=== PATIENT | male | born 1940 | race Caucasian/White ===

== ENCOUNTER → 2021-12-16 | Outpatient (CLI) | payer MEDICARE ==
[~2021-12-16] MED LIST: IOPAMIDOL 370 MG/ML 100 ML INFUS..BTL INJ ONE
[2021-12-16 12:28] LABS: CREATININE, SERUM 0.84 mg/dL (0.72-1.25)
== END ==
LOC: CT 11:16
PROVIDERS: ATTEND Urology
DX: R31.21 Asymptomatic microscopic hematuria (principal); N28.1 Cyst of kidney, acquired
CPT/HCPCS: 36415; 74178; 82565; 84520; Q9967

== ENCOUNTER → 2022-01-23 | Outpatient (CLI) | payer MEDICARE ==
[~2022-01-23] MED LIST changes: +FENTANYL CITRATE/PF 100MCG/2 ML INJ ONE; +HYDRALAZINE HCL 20 MG/ML VIAL ONE; -IOPAMIDOL 370 MG/ML 100 ML INFUS..BTL INJ ONE; +MIDAZOLAM HCL 2 MG/2 ML VIAL ONE; +SODIUM CHLORIDE 0.9% 250ML 250 ML ONE
[2022-01-23 08:32] LABS: BASOPHILS # (AUTO) 0.1 (0.0-0.1); BASOPHILS % 0.9 % (0.0-1.0); EOSINOPHILS # (AUTO) 0.1 (0.0-0.4); EOSINOPHILS % 2.2 % (0.0-6.0); HEMATOCRIT 38.2 % (38.2-49.6); LYMPHOCYTES # (AUTO) 1.3 (1.0-3.2); LYMPHOCYTES % 23.2 % (18.0-39.1); MEAN CORPUSCULAR HEMOGLOBIN 28.4 pg (28-32); MEAN CORPUSCULAR HGB CONC 31.4 g/dL (31-35); MEAN CORPUSCULAR VOLUME 90.3 fL (81-99); MONOCYTES # (AUTO) 0.6 (0.2-0.8); MONOCYTES % 10.7 % (4.4-11.3); NEUTROPHILS # (AUTO) 3.4 (2.1-6.9); NEUTROPHILS % 62.8 % (38.7-80.0); PLATELET COUNT 223 x10e3/uL (140-360); RED BLOOD COUNT 4.23 x10e6/uL (4.3-5.7); RED CELL DISTRIBUTION WIDTH 14.6 % (11.7-14.4)
[2022-01-23 08:50] LABS: INR 0.92; PROTHROMBIN TIME 13.2 seconds (11.9-14.5)
[2022-01-23 08:51] LABS: PARTIAL THROMBOPLASTIN TIME 29.7 seconds (23.8-35.5)
[2022-01-23 08:57] LABS: ANION GAP 12.8 mmol/L (8-16); CALCIUM 9.5 mg/dL (8.4-10.2); CREATININE, SERUM 0.89 mg/dL (0.72-1.25); POTASSIUM 3.8 mmol/L (3.5-5.1)
== END ==
LOC: US 08:03
PROVIDERS: ATTEND Urology
DX: N28.89 Other specified disorders of kidney and ureter (principal); Z20.822 Contact with and (suspected) exposure to COVID-19
CPT/HCPCS: 0223U; 36415 ×2; 50200; 76942; 80048; 85025; 85610; 85730; 88305; 88333; 88342; J0360; J2250; J3010; J7050; 88304

== ENCOUNTER 2022-03-30 10:42 | Inpatient (IN) | payer MEDICARE ==
[2022-03-27 12:26] LABS: BASOPHILS % 0.7 % (0.0-1.0); EOSINOPHILS # (AUTO) 0.1 (0.0-0.4); EOSINOPHILS % 1.4 % (0.0-6.0); HEMATOCRIT 38.8 % (38.2-49.6); LYMPHOCYTES # (AUTO) 0.7 (1.0-3.2); MEAN CORPUSCULAR HEMOGLOBIN 29.1 pg (28-32); MEAN CORPUSCULAR HGB CONC 30.9 g/dL (31-35); MEAN CORPUSCULAR VOLUME 94.2 fL (81-99); MONOCYTES # (AUTO) 0.5 (0.2-0.8); MONOCYTES % 12.1 % (4.4-11.3); NEUTROPHILS # (AUTO) 2.9 (2.1-6.9); NEUTROPHILS % 69.6 % (38.7-80.0); PLATELET COUNT 165 x10e3/uL (140-360); RED BLOOD COUNT 4.12 x10e6/uL (4.3-5.7); RED CELL DISTRIBUTION WIDTH 15.4 % (11.7-14.4)
[2022-03-27 12:46] LABS: ALBUMIN 3.7 g/dL (3.5-5.0); ALBUMIN/GLOBULIN RATIO 1.2 (0.8-2.0); ANION GAP 10.2 mmol/L (8-16); CALCIUM 9.1 mg/dL (8.4-10.2); CREATININE, SERUM 0.92 mg/dL (0.72-1.25); POTASSIUM 4.2 mmol/L (3.5-5.1)
[~2022-03-30] VITALS: Ht 177.8 cm; Wt 63.5 kg
[~2022-03-30 10:42] MED LIST changes: +ADVIL200 M1 PO; +AVODART0.5 MG PO; +B12 PO; +CO Q-10200 MG PO; -FENTANYL CITRATE/PF 100MCG/2 ML INJ ONE; +FLOMAX0.4 MG PO; -HYDRALAZINE HCL 20 MG/ML VIAL ONE; +L-THEANINE200 MG PO; +MAGNESIUM PO; -MIDAZOLAM HCL 2 MG/2 ML VIAL ONE; +MULTI-VITAMIN1 EACH PO; +RESTASIS1 EACH; -SODIUM CHLORIDE 0.9% 250ML 250 ML ONE; +TUMERIC PO; +TYLENOL PM; +VISION VITAMIN1 EACH PO; +VITAMIN D3250 MC1 PO
[2022-03-30] MEDS ORDERED: LIDOCAINE HCL 2% LOCAL INJ 5 ML SDV VIAL INJ ONE (12:25)
[2022-03-30] MEDS ORDERED: ROCURONIUM BROMIDE 10 MG/ML 5ML VIAL IV ONE (12:25)
[2022-03-30] MEDS ORDERED: PROPOFOL IV EMULSION 10 MG/ML 20 ML VIAL ONE (12:25)
[2022-03-30] MEDS ORDERED: POVIDONE IODINE 0.05% 0.05 % ML PO ONE (12:25)
[2022-03-30] MEDS ORDERED: SEVOFLURANE INHAL SOLN 250 ML PEN BTL ONE (12:25)
[2022-03-30] MEDS ORDERED: HYDROMORPHONE 2MG/ML 2 MG/ML ML ONE (12:28)
[2022-03-30] MEDS ORDERED: NEOSTIGMINE 1 MG/ML 10ML VIAL ONE (13:06)
[2022-03-30] MEDS ORDERED: ONDANSETRON HCL INJ 2MG/ML 2ML 2 MG/ML VIAL ONE (13:06)
[2022-03-30] MEDS ORDERED: GLYCOPYRROLATE INJ 0.2 MG/ML VIAL ONE (13:06)
[2022-03-30] MEDS ORDERED: FENTANYL CITRATE/PF 100MCG/2 ML INJ ONE ×2 (13:17→16:29)
[2022-03-30] MEDS ORDERED: MANNITOL 25% 12.5GM/50ML 50 ML ONE (13:42)
[2022-03-30] MEDS: SODIUM CHLORIDE 0.9% 250ML IRRIG IR SCH ×3 (15:30→23:30)
[2022-03-30] MEDS ORDERED: DIPHENHYDRAMINE HCL INJ 50 MG/ML VIAL IM PRN (15:30)
[2022-03-30] MEDS ORDERED: NALOXONE HCL INJ 0.4 MG/ML AMP IV PRN (15:30)
[2022-03-30] MEDS: MORPHINE SULFATE 1 MG/ML 30ML PCA IV PRN ×3 (15:50→22:08)
[2022-03-30 16:08] LABS: BASOPHILS % 0.5 % (0.0-1.0); EOSINOPHILS % 0.1 % (0.0-6.0); HEMATOCRIT 37.9 % (38.2-49.6); HEMOGLOBIN 11.7 g/dL (14.0-18.0); LYMPHOCYTES # (AUTO) 1.1 (1.0-3.2); LYMPHOCYTES % 13.7 % (18.0-39.1); MEAN CORPUSCULAR HEMOGLOBIN 29.3 pg (28-32); MEAN CORPUSCULAR HGB CONC 30.9 g/dL (31-35); MEAN CORPUSCULAR VOLUME 94.8 fL (81-99); MONOCYTES # (AUTO) 0.5 (0.2-0.8); NEUTROPHILS # (AUTO) 6.3 (2.1-6.9); NEUTROPHILS % 79.4 % (38.7-80.0); PLATELET COUNT 173 x10e3/uL (140-360); RED CELL DISTRIBUTION WIDTH 15.3 % (11.7-14.4)
[2022-03-30] MEDS ORDERED: HYDROMORPHONE 1MG/1ML INJ ONE (16:23)
[2022-03-30 16:26] LABS: ANION GAP 14.5 mmol/L (8-16); CALCIUM 8.6 mg/dL (8.4-10.2); CREATININE, SERUM 0.78 mg/dL (0.72-1.25); POTASSIUM 3.5 mmol/L (3.5-5.1)
[2022-03-30] MEDS: D5.45%NS/KCL 20MEQ 1,000 ML IV SCH (16:30)
[2022-03-30] MEDS: ACETAMINOPHEN 1000 MG/100 ML IV PRN (18:30)
[2022-03-30 20:00] VITALS: BP 169/103
[2022-03-30 21:00] VITALS: BP 147/70
[2022-03-30 22:00] VITALS: BP 176/88
[2022-03-30 23:00] VITALS: BP 153/71
[2022-03-31] VITALS (11 sets, daily range): BP systolic 130–172; BP diastolic 65–89
[2022-03-31] MEDS: D5.45%NS/KCL 20MEQ 1,000 ML IV SCH ×3 (00:30→23:00)
[2022-03-31] MEDS: SODIUM CHLORIDE 0.9% 250ML IRRIG IR SCH ×3 (03:30→13:25)
[2022-03-31 05:04] LABS: BASOPHILS % 0.1 % (0.0-1.0); HEMATOCRIT 38.4 % (38.2-49.6); HEMOGLOBIN 11.4 g/dL (14.0-18.0); LYMPHOCYTES # (AUTO) 0.4 (1.0-3.2); LYMPHOCYTES % 3.4 % (18.0-39.1); MEAN CORPUSCULAR HEMOGLOBIN 28.8 pg (28-32); MEAN CORPUSCULAR HGB CONC 29.7 g/dL (31-35); MONOCYTES # (AUTO) 0.8 (0.2-0.8); MONOCYTES % 8.1 % (4.4-11.3); NEUTROPHILS # (AUTO) 9.1 (2.1-6.9); NEUTROPHILS % 88.1 % (38.7-80.0); PLATELET COUNT 169 x10e3/uL (140-360); RED BLOOD COUNT 3.96 x10e6/uL (4.3-5.7); RED CELL DISTRIBUTION WIDTH 15.3 % (11.7-14.4)
[2022-03-31 05:22] LABS: ANION GAP 14.8 mmol/L (8-16); CALCIUM 8.5 mg/dL (8.4-10.2); CREATININE, SERUM 0.91 mg/dL (0.72-1.25); POTASSIUM 3.8 mmol/L (3.5-5.1)
[2022-03-31] MEDS: MORPHINE SULFATE 1 MG/ML 30ML PCA IV PRN (06:13)
[2022-03-31] MEDS: ONDANSETRON HCL INJ 2MG/ML 2ML 2 MG/ML VIAL IV PRN (09:48)
[2022-03-31] MEDS: ACETAMINOPHEN 1000 MG/100 ML IV PRN ×2 (10:38→23:02)
[2022-03-31] MEDS ORDERED: DILTIAZEM HCL 5 MG/ML 5 ML VIAL IV ONE (21:45)
[2022-03-31] MEDS ORDERED: Morphine 2mg Syringe 2 MG/ML SYR IV PRN (23:00)
[2022-04-01] VITALS (8 sets, daily range): BP systolic 153–189; BP diastolic 86–104
[2022-04-01] MEDS: D5.45%NS/KCL 20MEQ 1,000 ML IV SCH ×3 (00:30→17:51)
[2022-04-01] MEDS ORDERED: DOCUSATE SODIUM 100 MG CAP PO SCH (09:00)
[2022-04-01] MEDS: ACETAMINOPHEN 1000 MG/100 ML IV PRN ×2 (11:54→17:30)
[2022-04-01 15:35] LABS: BASOPHILS % 0.1 % (0.0-1.0); HEMATOCRIT 31.4 % (38.2-49.6); LYMPHOCYTES # (AUTO) 0.3 (1.0-3.2); LYMPHOCYTES % 3.3 % (18.0-39.1); MEAN CORPUSCULAR HGB CONC 31.8 g/dL (31-35); MONOCYTES % 9.3 % (4.4-11.3); NEUTROPHILS # (AUTO) 9.1 (2.1-6.9); NEUTROPHILS % 87.1 % (38.7-80.0); PLATELET COUNT 150 x10e3/uL (140-360); RED BLOOD COUNT 3.45 x10e6/uL (4.3-5.7); RED CELL DISTRIBUTION WIDTH 15.2 % (11.7-14.4)
[2022-04-01 16:01] LABS: ANION GAP 11.1 mmol/L (8-16); CREATININE, SERUM 0.84 mg/dL (0.72-1.25); POTASSIUM 4.1 mmol/L (3.5-5.1)
[2022-04-01] MEDS: DOCUSATE SODIUM 100 MG CAP PO SCH (20:53)
[2022-04-01] MEDS: TRAMADOL HCL 50 MG TAB PO PRN (21:02)
[2022-04-02] VITALS (8 sets, daily range): BP systolic 148–168; BP diastolic 84–99
[2022-04-02] MEDS: D5.45%NS/KCL 20MEQ 1,000 ML IV SCH ×3 (00:12→18:34)
[2022-04-02] MEDS: HYDRALAZINE HCL 20 MG/ML VIAL IV PRN ×3 (00:13→16:09)
[2022-04-02 04:59] LABS: BASOPHILS % 0.3 % (0.0-1.0); EOSINOPHILS % 0.1 % (0.0-6.0); HEMATOCRIT 27.6 % (38.2-49.6); HEMOGLOBIN 9.2 g/dL (14.0-18.0); LYMPHOCYTES # (AUTO) 0.6 (1.0-3.2); LYMPHOCYTES % 6.5 % (18.0-39.1); MEAN CORPUSCULAR HEMOGLOBIN 28.9 pg (28-32); MEAN CORPUSCULAR HGB CONC 33.3 g/dL (31-35); MEAN CORPUSCULAR VOLUME 86.8 fL (81-99); MONOCYTES % 11.2 % (4.4-11.3); NEUTROPHILS # (AUTO) 7.1 (2.1-6.9); NEUTROPHILS % 81.4 % (38.7-80.0); PLATELET COUNT 146 x10e3/uL (140-360); RED BLOOD COUNT 3.18 x10e6/uL (4.3-5.7); RED CELL DISTRIBUTION WIDTH 15.2 % (11.7-14.4)
[2022-04-02 05:07] LABS: ANION GAP 11.4 mmol/L (8-16); CALCIUM 8.7 mg/dL (8.4-10.2); CREATININE, SERUM 0.75 mg/dL (0.72-1.25); POTASSIUM 3.4 mmol/L (3.5-5.1)
[2022-04-02] MEDS: DOCUSATE SODIUM 100 MG CAP PO SCH ×2 (09:54→16:09)
[2022-04-02] MEDS: TRAMADOL HCL 50 MG TAB PO PRN ×2 (09:54→16:10)
[2022-04-02] MEDS ORDERED: KCL 20 MEQ PACKET/ ORAL SOLN PO ONE (14:55)
[2022-04-03] VITALS (8 sets, daily range): BP systolic 147–174; BP diastolic 81–89
[2022-04-03] MEDS: D5.45%NS/KCL 20MEQ 1,000 ML IV SCH ×4 (02:39→19:28)
[2022-04-03 05:43] LABS: BASOPHILS % 0.3 % (0.0-1.0); EOSINOPHILS % 0.6 % (0.0-6.0); HEMATOCRIT 28.7 % (38.2-49.6); HEMOGLOBIN 9.1 g/dL (14.0-18.0); LYMPHOCYTES # (AUTO) 0.6 (1.0-3.2); LYMPHOCYTES % 8.6 % (18.0-39.1); MEAN CORPUSCULAR HEMOGLOBIN 28.9 pg (28-32); MEAN CORPUSCULAR HGB CONC 31.7 g/dL (31-35); MEAN CORPUSCULAR VOLUME 91.1 fL (81-99); MONOCYTES # (AUTO) 0.8 (0.2-0.8); MONOCYTES % 11.7 % (4.4-11.3); NEUTROPHILS # (AUTO) 5.3 (2.1-6.9); NEUTROPHILS % 78.4 % (38.7-80.0); PLATELET COUNT 164 x10e3/uL (140-360); RED BLOOD COUNT 3.15 x10e6/uL (4.3-5.7); RED CELL DISTRIBUTION WIDTH 15.2 % (11.7-14.4)
[2022-04-03 05:58] LABS: ANION GAP 10.5 mmol/L (8-16); CALCIUM 8.6 mg/dL (8.4-10.2); CREATININE, SERUM 0.71 mg/dL (0.72-1.25); POTASSIUM 3.5 mmol/L (3.5-5.1)
[2022-04-03] MEDS: TRAMADOL HCL 50 MG TAB PO PRN ×2 (06:03→12:31)
[2022-04-03] MEDS: DOCUSATE SODIUM 100 MG CAP PO SCH ×2 (10:33→20:33)
[2022-04-03] MEDS: HYDRALAZINE HCL 20 MG/ML VIAL IV PRN (12:31)
[2022-04-03] MEDS ORDERED: ACETAMINOPHEN 325 MG TAB PO PRN (14:45)
[2022-04-03] MEDS ORDERED: SIMETHICONE 80 MG CHEW PO PRN (15:00)
[2022-04-04] VITALS (8 sets, daily range): BP systolic 136–177; BP diastolic 75–95
[2022-04-04] MEDS: D5.45%NS/KCL 20MEQ 1,000 ML IV SCH (05:41)
[2022-04-04] MEDS: HYDRALAZINE HCL 20 MG/ML VIAL IV PRN (06:20)
[2022-04-04 07:32] LABS: BASOPHILS % 0.3 % (0.0-1.0); EOSINOPHILS # (AUTO) 0.1 (0.0-0.4); EOSINOPHILS % 2.3 % (0.0-6.0); HEMATOCRIT 27.5 % (38.2-49.6); HEMOGLOBIN 8.8 g/dL (14.0-18.0); LYMPHOCYTES # (AUTO) 0.5 (1.0-3.2); LYMPHOCYTES % 9.4 % (18.0-39.1); MEAN CORPUSCULAR HEMOGLOBIN 29.1 pg (28-32); MEAN CORPUSCULAR VOLUME 91.1 fL (81-99); MONOCYTES # (AUTO) 0.8 (0.2-0.8); NEUTROPHILS # (AUTO) 4.3 (2.1-6.9); NEUTROPHILS % 74.7 % (38.7-80.0); PLATELET COUNT 183 x10e3/uL (140-360); RED BLOOD COUNT 3.02 x10e6/uL (4.3-5.7); RED CELL DISTRIBUTION WIDTH 15.2 % (11.7-14.4)
[2022-04-04 07:56] LABS: ANION GAP 11.6 mmol/L (8-16); CALCIUM 8.5 mg/dL (8.4-10.2); CREATININE, SERUM 0.73 mg/dL (0.72-1.25); POTASSIUM 3.6 mmol/L (3.5-5.1)
[2022-04-04] MEDS: DOCUSATE SODIUM 100 MG CAP PO SCH ×2 (09:22→20:52)
[2022-04-04] MEDS: ONDANSETRON HCL INJ 2MG/ML 2ML 2 MG/ML VIAL IV PRN (11:06)
[2022-04-04] MEDS: TRAMADOL HCL 50 MG TAB PO PRN (20:53)
[2022-04-05] VITALS (8 sets, daily range): BP systolic 129–172; BP diastolic 68–88
[2022-04-05] MEDS: DOCUSATE SODIUM 100 MG CAP PO SCH ×2 (09:41→21:50)
[2022-04-05] MEDS ORDERED: BISACODYL 10 MG SUPP PR PRN (10:00)
[2022-04-05] MEDS ORDERED: BISACODYL 10 MG SUPP PR ONE (10:00)
[2022-04-05] MEDS ORDERED: MAGNESIUM HYDROXIDE 30 ML UDC PO PRN (10:00)
[2022-04-05] MEDS ORDERED: ONDANSETRON HCL INJ 2MG/ML 2ML 2 MG/ML VIAL IV PRN (10:00)
[2022-04-05] MEDS ORDERED: IOPAMIDOL 370 MG/ML 100 ML INFUS..BTL INJ ONE ×2 (13:02→18:15)
[2022-04-05] MEDS: TAMSULOSIN HCL 0.4 MG CAP PO SCH (16:19)
[2022-04-05] MEDS: DUTASTERIDE 0.5 MG CAP PO SCH (16:19)
[2022-04-05] MEDS: ENOXAPARIN SOD INJ 40 MG/0.4 ML SYR SC SCH (16:19)
[2022-04-05] MEDS ORDERED: SODIUM CHLORIDE 0.9% 250ML 250 ML ONE (22:07)
[2022-04-06] VITALS (9 sets, daily range): BP systolic 110–166; BP diastolic 62–88
[2022-04-06 05:02] LABS: BASOPHILS % 0.5 % (0.0-1.0); EOSINOPHILS # (AUTO) 0.2 (0.0-0.4); EOSINOPHILS % 2.6 % (0.0-6.0); HEMOGLOBIN 8.2 g/dL (14.0-18.0); LYMPHOCYTES # (AUTO) 0.8 (1.0-3.2); LYMPHOCYTES % 11.5 % (18.0-39.1); MEAN CORPUSCULAR HEMOGLOBIN 28.2 pg (28-32); MEAN CORPUSCULAR HGB CONC 31.5 g/dL (31-35); MEAN CORPUSCULAR VOLUME 89.3 fL (81-99); MONOCYTES # (AUTO) 1.1 (0.2-0.8); MONOCYTES % 16.4 % (4.4-11.3); NEUTROPHILS # (AUTO) 4.6 (2.1-6.9); NEUTROPHILS % 68.5 % (38.7-80.0); PLATELET COUNT 231 x10e3/uL (140-360); RED BLOOD COUNT 2.91 x10e6/uL (4.3-5.7); RED CELL DISTRIBUTION WIDTH 14.6 % (11.7-14.4)
[2022-04-06 05:44] LABS: ANION GAP 10.2 mmol/L (8-16); CALCIUM 8.3 mg/dL (8.4-10.2); CREATININE, SERUM 0.77 mg/dL (0.72-1.25); POTASSIUM 3.2 mmol/L (3.5-5.1)
[2022-04-06] MEDS ORDERED: POTASSIUM CHLORIDE 10MEQ EA PO ONE (08:30)
[2022-04-06] MEDS: TAMSULOSIN HCL 0.4 MG CAP PO SCH (10:12)
[2022-04-06] MEDS: DOCUSATE SODIUM 100 MG CAP PO SCH ×2 (10:12→21:55)
[2022-04-06] MEDS: AMOXICILLIN/CLAVULANATE K 875 MG TAB PO SCH ×2 (10:12→21:55)
[2022-04-06] MEDS: TRAMADOL HCL 50 MG TAB PO PRN ×2 (10:30→16:37)
[2022-04-06] MEDS: DUTASTERIDE 0.5 MG CAP PO SCH (17:18)
[2022-04-06] MEDS: ENOXAPARIN SOD INJ 40 MG/0.4 ML SYR SC SCH (17:18)
[2022-04-07] VITALS (7 sets, daily range): BP systolic 113–167; BP diastolic 66–87
[2022-04-07] MEDS ORDERED: HYDRALAZINE HCL 25 MG TAB PO PRN (08:30)
[2022-04-07] MEDS ORDERED: HYDROXYZINE HCL 10 MG TAB PO PRN (08:45)
[2022-04-07 08:57] LABS: BASOPHILS % 0.6 % (0.0-1.0); EOSINOPHILS # (AUTO) 0.3 (0.0-0.4); EOSINOPHILS % 4.1 % (0.0-6.0); HEMATOCRIT 28.4 % (38.2-49.6); LYMPHOCYTES # (AUTO) 0.9 (1.0-3.2); LYMPHOCYTES % 13.5 % (18.0-39.1); MEAN CORPUSCULAR HEMOGLOBIN 28.8 pg (28-32); MEAN CORPUSCULAR HGB CONC 31.7 g/dL (31-35); MONOCYTES # (AUTO) 0.7 (0.2-0.8); MONOCYTES % 10.7 % (4.4-11.3); NEUTROPHILS # (AUTO) 4.7 (2.1-6.9); NEUTROPHILS % 70.6 % (38.7-80.0); PLATELET COUNT 290 x10e3/uL (140-360); RED BLOOD COUNT 3.12 x10e6/uL (4.3-5.7); RED CELL DISTRIBUTION WIDTH 14.9 % (11.7-14.4)
[2022-04-07] MEDS ORDERED: TRIMETHOPRIM/SULFAMETHOXAZOLE 160-800 MG TAB PO SCH (09:00)
[2022-04-07 09:16] LABS: ANION GAP 11.5 mmol/L (8-16); CALCIUM 8.6 mg/dL (8.4-10.2); CREATININE, SERUM 0.73 mg/dL (0.72-1.25); POTASSIUM 3.5 mmol/L (3.5-5.1)
[2022-04-07 09:31] LABS: MAGNESIUM 1.7 MG/DL (1.3-2.1); PHOSPHORUS 2.6 MG/DL (2.3-4.7)
[2022-04-07] MEDS: DOCUSATE SODIUM 100 MG CAP PO SCH ×3 (10:07→23:54)
[2022-04-07] MEDS: TAMSULOSIN HCL 0.4 MG CAP PO SCH (10:08)
[2022-04-07] MEDS: NIFEDIPINE CR 30 MG TAB PO SCH (10:08)
[2022-04-07] MEDS: AMOXICILLIN/CLAVULANATE K 875 MG TAB PO SCH ×2 (10:08→21:00)
[2022-04-07] MEDS: LORATADINE 10 MG TAB PO SCH (10:08)
[2022-04-07 13:57] LABS: INR 1.06
[2022-04-07] MEDS ORDERED: MIDAZOLAM HCL 2 MG/2 ML VIAL ONE (16:15)
[2022-04-07] MEDS ORDERED: FENTANYL CITRATE/PF 100MCG/2 ML INJ ONE (16:16)
[2022-04-07] MEDS ORDERED: SODIUM CHLORIDE 0.9% 250ML 250 ML ONE (16:16)
[2022-04-07] MEDS ORDERED: LIDOCAINE HCL 1% 30ML-PF VIAL ONE (16:51)
[2022-04-07] MEDS: ENOXAPARIN SOD INJ 40 MG/0.4 ML SYR SC SCH (17:00)
[2022-04-07] MEDS: DUTASTERIDE 0.5 MG CAP PO SCH (17:00)
[2022-04-07 18:05] LABS: BODY FLUID APPEARANCE TURBID; BODY FLUID COLOR RED; BODY FLUID TYPE RENAL ABSCESS
[2022-04-07 18:15] LABS: RBC,BODY FLUID < 2000 cells/uL; WBC,BODY FLUID 216 cells/uL
[2022-04-07 20:29] LABS: LYMPHOCYTES,BODY FLUID 1 %; MONO/MACROPHG,BODY FLUID 7 %; NEUTROPHILS,BODY FLUID 92 %
[2022-04-07] MEDS: MELATONIN 5 MG TABLET PO SCH ×2 (21:00→23:54)
[2022-04-08] VITALS: BP 140/79
[2022-04-08 04:00] VITALS: BP 144/82
[2022-04-08] MEDS: NIFEDIPINE CR 30 MG TAB PO SCH (08:36)
[2022-04-08] MEDS: TAMSULOSIN HCL 0.4 MG CAP PO SCH (08:36)
[2022-04-08] MEDS: AMOXICILLIN/CLAVULANATE K 875 MG TAB PO SCH (08:36)
[2022-04-08] MEDS: DOCUSATE SODIUM 100 MG CAP PO SCH (08:36)
[2022-04-08] MEDS: LORATADINE 10 MG TAB PO SCH (08:36)
[2022-04-08 08:40] VITALS: BP 149/86
[2022-04-08 08:53] VITALS: BP 149/86
[2022-04-08 11:20] VITALS: BP 141/85
[2022-04-08] MEDS ORDERED: ONDANSETRON HCL 4 MG ORAL DISINTEGRATING TAB PO PRN (12:45)
[2022-04-08] MEDS: DUTASTERIDE 0.5 MG CAP PO SCH (16:34)
[2022-04-08] MEDS: ENOXAPARIN SOD INJ 40 MG/0.4 ML SYR SC SCH (16:35)
[2022-04-08 16:48] VITALS: BP 117/77
== END 2022-04-08 17:15 | disposition home or self-care (01) | DRG 656 ==
LOC: OR 10:42 → PACU V 15:27 → ICU 17:27 → MED/SURG 03-31 14:55
PROVIDERS: ADMIT Internal Medicine; ATTEND Internal Medicine
PROC: 0TN Urinary System, Release (ICD-10-PCS; 2022-03-30)
PROC: 0TB00ZZ Excision of Right Kidney, Open Approach (ICD-10-PCS; principal; 2022-03-30 12:52)
PROC: 0W9G3ZX Drainage of Peritoneal Cavity, Percutaneous Approach, Diagnostic (ICD-10-PCS; 2022-04-07)
DX: C64.1 Malignant neoplasm of right kidney, except renal pelvis (principal); G92.8 Other toxic encephalopathy; D62 Acute posthemorrhagic anemia; J90 Pleural effusion, not elsewhere classified; K68.11 Postprocedural retroperitoneal abscess; T81.43XA Infection following a procedure, organ and space surgical site, initial encounter; N40.0 Benign prostatic hyperplasia without lower urinary tract symptoms; Z87.891 Personal history of nicotine dependence; N28.1 Cyst of kidney, acquired; F50.89 Other specified eating disorder; Z68.20 Body mass index [BMI] 20.0-20.9, adult; N40.1 Benign prostatic hyperplasia with lower urinary tract symptoms; R33.8 Other retention of urine; T40.605A Adverse effect of unspecified narcotics, initial encounter
CPT/HCPCS: 0223U; 36415; 71045; 71046; 74018; 74177; 74470; 77012; 80048; 80053; 83735; 84100; 85025; 85610; 86850; 86900; 86920; 87070; 87205; 88112; 88300; 88304; 88305; 88307; 88342; 89051; 93005; 94799; 99152; 99153; 99251; C1769; J0360; J0690; J1170; J1650; J2001; J2150; J2250; J2270; J2405; J2710; J3010; J7050; Q9967

== ENCOUNTER → 2022-07-17 | Outpatient (CLI) | payer MEDICARE ==
[~2022-07-17] MED LIST changes: +IOPAMIDOL 370 MG/ML 100 ML INFUS..BTL INJ ONE
[2022-07-17 13:11] LABS: CREATININE, SERUM 0.97 mg/dL (0.72-1.25)
== END ==
LOC: CT 12:07
PROVIDERS: ATTEND Urology
DX: C64.1 Malignant neoplasm of right kidney, except renal pelvis (principal); D41.01 Neoplasm of uncertain behavior of right kidney
CPT/HCPCS: 36415; 74178; 82565; 84520; Q9967

== ENCOUNTER → 2022-11-05 | Day surgery (SDC) | payer MEDICARE ==
[2022-11-04 13:10] LABS: BASOPHILS # (AUTO) 0.1 (0.0-0.1); BASOPHILS % 0.9 % (0.0-1.0); EOSINOPHILS # (AUTO) 0.1 (0.0-0.4); HEMATOCRIT 40.9 % (38.2-49.6); HEMOGLOBIN 13.5 g/dL (14.0-18.0); LYMPHOCYTES % 18.9 % (18.0-39.1); MEAN CORPUSCULAR HEMOGLOBIN 29.5 pg (28-32); MEAN CORPUSCULAR VOLUME 89.3 fL (81-99); MONOCYTES # (AUTO) 0.7 (0.2-0.8); MONOCYTES % 13.5 % (4.4-11.3); NEUTROPHILS # (AUTO) 3.5 (2.1-6.9); NEUTROPHILS % 64.5 % (38.7-80.0); PLATELET COUNT 198 x10e3/uL (140-360); RED BLOOD COUNT 4.58 x10e6/uL (4.3-5.7); RED CELL DISTRIBUTION WIDTH 15.9 % (11.7-14.4)
[2022-11-04 14:19] LABS: CALCIUM 9.4 mg/dL (8.4-10.2); CREATININE, SERUM 1.05 mg/dL (0.72-1.25)
[~2022-11-05] MED LIST changes: +CEFTRIAXONE 1 GM VIAL ONE; +CLEARLAX119 GM; +DEXAMETHASONE SOD PHOS INJ 4 MG/ML SDV ONE; +EPA; +FAMOTIDINE20 MG PO; +FENTANYL CITRATE/PF 100MCG/2 ML INJ ONE; +GLUCOSAMINE1000 MG PO; -IOPAMIDOL 370 MG/ML 100 ML INFUS..BTL INJ ONE; +IOPAMIDOL 610MG/1ML 300 MG/ML VIAL IV ONE; +LACTATED RINGER'S 1,000 ML ONE; +LIDOCAINE HCL 2% LOCAL INJ 5 ML SDV VIAL INJ ONE; +LOSARTAN POTASS25 MG PO; +MIDODRINE HCL5 MG PO; +ONDANSETRON HCL INJ 2MG/ML 2ML 2 MG/ML VIAL ONE; +POVIDONE IODINE 0.05% 0.05 % ML PO ONE; +PROPOFOL IV EMULSION 10 MG/ML 20 ML VIAL ONE; +[UNRECOGNIZED DRUG - OTHER]
[2022-11-05 09:00] VITALS: BP 153/89; PULSE 83; RESP 16; O2SAT 97
== END | disposition home or self-care (01) ==
LOC: OR 05:42
PROVIDERS: ATTEND Urology
DX: N20.0 Calculus of kidney (principal); N32.3 Diverticulum of bladder; N40.1 Benign prostatic hyperplasia with lower urinary tract symptoms; N13.8 Other obstructive and reflux uropathy; I10 Essential (primary) hypertension; G25.81 Restless legs syndrome; Z01.810 Encounter for preprocedural cardiovascular examination; Z01.812 Encounter for preprocedural laboratory examination; Z01.818 Encounter for other preprocedural examination; Z79.899 Other long term (current) drug therapy
CPT/HCPCS: 36415; 50590; 71046; 80048; 83970; 84550; 85025; 93005; C1758; J0696; J1100; J2001; J2405; J2704; J3010; J7121; Q9967

== ENCOUNTER → 2024-07-19 | Outpatient (REF) | payer MEDICARE ==
[~2024-07-19] MED LIST changes: -CEFTRIAXONE 1 GM VIAL ONE; -DEXAMETHASONE SOD PHOS INJ 4 MG/ML SDV ONE; -FENTANYL CITRATE/PF 100MCG/2 ML INJ ONE; -IOPAMIDOL 610MG/1ML 300 MG/ML VIAL IV ONE; -LACTATED RINGER'S 1,000 ML ONE; -LIDOCAINE HCL 2% LOCAL INJ 5 ML SDV VIAL INJ ONE; -ONDANSETRON HCL INJ 2MG/ML 2ML 2 MG/ML VIAL ONE; -POVIDONE IODINE 0.05% 0.05 % ML PO ONE; -PROPOFOL IV EMULSION 10 MG/ML 20 ML VIAL ONE
== END ==
LOC: US 11:08
PROVIDERS: ATTEND Urology
DX: C64.1 Malignant neoplasm of right kidney, except renal pelvis (principal)
CPT/HCPCS: 71046; 76770; 76857